=== PATIENT | male | born 1995 | race Caucasian/White ===

== ENCOUNTER 2021-10-25 09:09 | Outpatient (CLI) | payer BC, MEDICAID, SELFPAY ==
--- NOTE | ~2021-10-25 | XR_ITS ---
EXAMINATION: XR hip RT min 2V DATE: 10/25/2021 10:00 INDICATION: Right hip pain TECHNIQUE: Three views of right hip were obtained. COMPARISON: None. FINDINGS: Bone alignment is normal. There is no fracture. The soft tissues are unremarkable. IMPRESSION: 1. No acute osseous abnormality. Reviewed, dictated and finalized at location F. RINTENDENT CONTAINER TERMINAL
--- NOTE | ~2021-10-25 | XR_ITS ---
EXAMINATION: XR knee LT 3V DATE: 10/25/2021 10:00 INDICATION: Left knee pain TECHNIQUE: Four views of the left knee were obtained. COMPARISON: None. FINDINGS: Alignment is normal. No fracture or osteochondral lesion. Joint spaces are normal with no e rosions. No joint effusion/synovitis. Soft tissues are unremarkable. IMPRESSION: 1. No acute osseous abnormality. Reviewed, dictated and finalized at location F. L RECOVERY SPECIALIST
--- NOTE | ~2021-10-25 | XR_ITS ---
EXAMINATION: XR hip LT min 2V INDICATION: Left hip pain TECHNIQUE: Three views of the left hip are obtained. COMPARISON: None available FINDINGS: Bone alignment is normal. There is no fracture. The soft tissues are unremarkable. IMPRESSION: 1. No acute osseous abnormality. Reviewed, dictated and finalized at location F. IN STATION OPERATOR
--- NOTE | ~2021-10-25 | XR_ITS ---
EXAMINATION: XR knee RT 3V DATE: 10/25/2021 10:00 INDICATION: Right knee pain TECHNIQUE: Five views of the right knee were obtained. COMPARISON: 06/07/2005 FINDINGS: Alignment is normal. No fracture or osteochondral lesion. Joint spaces are normal with no e rosions. No joint effusion/synovitis. Soft tissues are unremarkable. IMPRESSION: 1. No acute osseous abnormality. Reviewed, dictated and finalized at location F. EQUIPMENT OPERATOR
== END 2021-10-25 09:10 | disposition home or self-care (01) ==
LOC: CHSIMG 09:14
PROVIDERS: PCP Family Medicine; Visit Provider Physician Assistant
DX: M25.551 Pain in right hip (principal); M25.552 Pain in left hip; M25.561 Pain in right knee; M25.562 Pain in left knee
CPT/HCPCS: 73502; 73562

== ENCOUNTER 2021-11-20 08:02 | Outpatient (RCR) | payer MEDICAID, SELFPAY ==
--- NOTE | 2021-11-20 09:02 | PTOPEVAL ---
Thank you for referring Rigoberto Gonsales to [facility] The patient is scheduled to be seen for therapy? ____x/week for ___ weeks. Please review, sign, date and return this plan of care LENKA. I agree with and certify that the following plan of care is medically necessary. Referring Physician Date Admitting Provider: Attending Provider: Abhi Gnozales, MD Referring Provider: *PT Outpatient Evaluation Start: 11/20/21 08:13 Freq: Status: Active Protocol: Document 11/20/21 08:10 [facility] (Rec: 11/20/21 08:59 [facility] [id number]) Therapy Assessment Status Assessment Status Assessment Status Evaluation Evaluation Information Problem Diagnosis R leg pain Onset 11/17/20 Additional Evaluation Detail LEFS = 47% functionally declined Subjective Information patient reports he has had R Query Text:As Reported By Patient/ leg pain from the R hip down Family to the leg to the tips of the toes. he reports the pain is a pulsating/burning all around his leg down to the ankles. he reports this had been going on for years. he reports he has increased bouts or severity of these symptoms with standing in a still position. he reports moving causes less pain, but still pain in general. he reports he has had xrays of the R hip and knee that were negative. he reports he has never had an MRI of the R LE or imaging of the back. Prior Level of Function Comments Additional Prior Level of Function patient reports he is Comments currently in school online. he reports he does not work. he reports he has been dealing with this issue for years. Pain Assessment Timing of Pain Assessment Timing of Pain Assessment Assessment Pain Scale Pain Scale Used Numeric (1 - 10) Self Report Pain Assessment Right Leg(s) Reported Pain Level 1 Greatest Pain Intensity 2 Pain Score Pain Score 1: Self Report Interventions Used Interventions Used By Clinicians Activity or ADL's,Education, Exercise,Heat,Ice,Rest Cervical and Lumbar ROM Lumbar ROM Lumbar Flexion Active [place],Ankle Query Text:Hands to: Lumbar Extension (0-40)
--- NOTE | 2022-03-09 14:52 | PCPTNOTE ---
Mr. Gonsales attended 2 treatemnt sessions from 11/20/21 to 12/02/21. He failed to return to the clinic or contact the clinic. Refer to pt. last daily note for discharge status.
== END 2021-12-02 23:59 | disposition home or self-care (01) ==
LOC: CHSPT 08:02
PROVIDERS: PCP Family Medicine; Visit Provider Family Medicine
DX: M54.50 Low back pain, unspecified (principal)
CPT/HCPCS: 97110; 97161

== ENCOUNTER 2021-11-21 16:13 | Outpatient (CLI) | payer MEDICAID, SELFPAY | END 2021-11-21 16:14 | disposition home or self-care (01) | LOC: CHSLAB 16:15 | PROVIDERS: PCP Family Medicine; Visit Provider Family Medicine | DX: R51.9 Headache, unspecified (principal) | CPT/HCPCS: 99199; C9803; U0003; U0005 ==

== ENCOUNTER 2021-11-22 08:20 | Outpatient (CLI) | payer MEDICAID, SELFPAY ==
[2021-11-22 09:21] LABS: SARS-CoV-2 RNA PCR Negative (Negative)
== END 2021-11-22 08:21 | disposition home or self-care (01) ==
PROVIDERS: PCP Family Medicine; Visit Provider Family Medicine
DX: R51.9 Headache, unspecified (principal); Z20.822 Contact with and (suspected) exposure to COVID-19
CPT/HCPCS: C9803; U0003; U0005

== ENCOUNTER 2022-02-18 12:27 | Emergency (ER) | payer BC, MEDICAID, SELFPAY ==
--- NOTE | ~2022-02-18 | CT_ITS ---
EXAMINATION: CT brain wo con DATE: 02/18/2022 13:25 INDICATION: Seizure-like activity with tremors TECHNIQUE: Computed tomography (CT) of the head was performed without intravenous contrast. Sagittal and coronal reconstructions were performed. The mA was adjusted according to patient size. Iterative reconstruction technique was employed. The dose-length product was 605.33 mGy-cm. COMPARISON: None FINDINGS: No acute intracranial hemorrhage, acute infarction or abnormal extra axial fluid collection. Ventricl es are normal and symmetric. No mass/mass effect. The orbits, paranasal sinuses and mastoid air cells are normal. IMPRESSION: 1. Normal head CT. Reviewed, dictated and finalized at location A. IMPRESSION: 1. Normal head CT.
--- NOTE | 2022-02-18 12:43 | ED.SEIZURE ---
HPI - Seizure General Chief Complaint: Seizure Stated Complaint: AMBULANCE Time Seen by Provider: 02/18/22 12:43 Source: patient History of Present Illness HPI Narrative: 27-year-old with a history benign essential tremor, chronic leg pains was noted to have -- increased shaking. The patient has chronic tremor. Today's tremors noted to be more violent and lasted around 20 seconds -- foaming at the mouth -- loss of consciousness the patient stated that he has not eaten anything and has been drinking coffee as a result of which he is more tremulous. no incontinence. No tongue bite. after the questionable seizure activity the patient was awake in the postictal phase but appeared intoxicated. this lasted approximately 1-1/2 to 2 minutes. MD complaint: possible seizure Onset (ago): minute(s) ( Lasted 20 seconds) Description of Episode: loss of consciousness and tonic-clonic movement Duration of episode: 20 -: second(s) Witnessed: Yes - by Bystander Trauma: No Place: home Possible Precipitating Event: none Associated symptoms: denies other symptoms Treatments prior to arrival: none Related Data Home Medications Medication Instructions Recorded Confirmed No Home Medications 02/18/22 02/18/22 Allergies Allergy/AdvReac Type Severity Reaction Status Date / Time No Known Allergies Allergy Mild Verified 02/18/22 12:53 Review of Systems Review of Systems: All systems reviewed & are unremarkable except as noted in HPI and below Constitutional: Constitutional: Reports as per HPI and Reports no additional constitutional complaints Eyes: Eyes: Reports as per HPI and Reports no additional eye complaints ENT: Reports system reviewed and no additional complaints, except as documented and Reports as per HPI Cardiovascular: Cardiovascular: Reports as per HPI and Reports no additional cardiovascular complaints Respiratory: Respiratory: Reports as per HPI and Reports no additional respiratory complaints Gastrointestinal: Gastrointestinal: Reports as per HPI and Reports no additional gastrointestinal complaints Genitourinary: Genitourinary: Reports no additional male genitourinary complaints Musculoskeletal: Musculoskeletal: Reports no additional musculoskeletal complaints and Reports as per HPI Integumentary/Breasts: Skin/Breast: Reports system reviewed and no additional complaints, except as docu and Reports as per HPI Neurologic: Reports system reviewed and no additional complaints, except as documented and Reports as per HPI Comments: questionable seizure activity involving clonic activity of the extremities lasting 20 seconds followed by a postictal phase lasting 1-1/2 minutes. During the postictal phase the patient was confused Psychiatric: Psychiatric: Reports no additional psychiatric complaints and Reports as per HPI Endocrine: Endocrine: Reports no additional endocrine complaints and Reports as per HPI Hematologic/Lymphatic: Hematologic/Lymphatic: Reports no additional hematologic/lymphatic complaints and Reports as per HPI Allergic/Immunologic: Allergic/Immunologic: Reports no additional allergic/immunologic complaints and Reports as per HPI Exam Const: General: no acute distress and alert Orientation/consciousness: patient oriented x3 HENMT: Head: normal to inspection Face and sinus: normal facial exam Mouth: Yes lip normal and Yes moist mucous membranes Eyes: Conjunctivae: conjunctivae normal Pupils: Equal, round and reactive pupils present EOM: EOMs intact bilaterally Direct Ophthalmoscopy: no photophobia Neck: Neck: normal visual inspection and no lymphadenopathy Chest: Chest palpation & inspection: normal inspection of the chest Resp: Auscultation: clear to auscultation bilaterally Cardio: Rate: regular rate Rhythm: regular rhythm GI: GI Palp: Yes Soft to palpation Other: no tenderness/rigidity /rebound : General: Yes no CVA tenderness Testes: Testes normal Back/Spine/Pelvis:
[2022-02-18 12:44] VITALS: BP 146/79; PULSE 109; RESP 16; TEMP 36.2; O2SAT 100
[2022-02-18] MEDS: LORazepam INJ (*CRX) 2 MG/ML VIAL 0.5 MG IV PUSH (13:05)
[2022-02-18 13:24] LABS: Basophils Absolute Auto 0.06 K/mm3 (0.00-0.10); Basophils Percent Auto 0.7 % (0.0-1.0); Eosinophils Absolute Auto 0.13 K/mm3 (0.02-0.50); Eosinophils Percent Auto 1.6 % (1.0-6.0); Hematocrit 45.6 % (40.0-54.0); Hemoglobin 15.3 g/dL (14.0-18.0); Immature Granulocyte Absolute 0.01 K/mm3 (0.00-0.00); Immature Granulocyte Percent A 0.1 % (0.0-0.0); Lymphocytes Absolute Auto 2.15 K/mm3 (1.10-4.50); Lymphocytes Percent Auto 26.8 % (18.0-42.0); Mean Corpuscular HGB Conc 33.6 g/dL (32.0-36.0); Mean Corpuscular Hemoglobin 30.1 pg (27.0-31.0); Mean Corpuscular Volume 89.8 fL (78.0-102.0); Mean Platelet Volume 10.8 fl (8.7-11.0); Monocytes Absolute Auto 0.46 K/mm3 (0.10-0.90); Monocytes Percent Auto 5.7 % (2.0-11.0); Neutrophils Absolute Auto 5.2 K/mm3 (1.7-7.2); Neutrophils Percent Auto 65.1 % (50.0-70.0); Platelet Count Result 266 K/mm3 (150-420); Red Blood Count 5.08 M/mm3 (4.70-6.10); Red Cell Distribution Width 11.6 % (11.6-14.4)
--- NOTE | 2022-02-18 13:33 | PC.NURSE ---
patient provided chips, water and sandwhich per erp request.
[2022-02-18 13:46] LABS: Alanine Aminotransferase 16 U/L (16-63); Albumin Level 4.1 g/dL (3.4-5.0); Alkaline Phosphatase 51 U/L (46-116); Anion Gap 13 mmol/L (8-16); Aspartate Amino Transferase < 10 U/L (15-37); Bilirubin,Total 0.4 mg/dL (0.00-1.00); Blood Urea Nitrogen 17 mg/dL (7-18); Calcium 8.2 mg/dL (8.5-10.1); Carbon Dioxide 23 mmol/L (21-32); Chloride 103 mmol/L (98-108); Estimated Glomerular Filt Rate > 60; Glucose 134 mg/dL (70-99); Lactic Acid Reflex 6.8 mmol/L (0.4-2.0); Magnesium 2.3 mg/dL (1.8-2.4); Osmolality Calculated 291 mOsm/kg (285-295); Potassium 3.4 mmol/L (3.5-5.1); Sodium 139 mmol/L (136-145); Thyroid Stimulating Hormone 3.37 uIU/mL (0.36-3.74); Total Protein 7.1 g/dL (6.4-8.2)
[2022-02-18 14:04] VITALS: BP 127/83; PULSE 98; RESP 16; O2SAT 97
--- NOTE | 2022-02-18 14:15 | PC.NURSE ---
1L ns finished infusing from EMS.
== END 2022-02-18 14:27 | disposition home or self-care (01) ==
PROVIDERS: Emergency Provider Internal Medicine Critical Care Medicine; PCP Physician Assistant
DX: G40.409 Other generalized epilepsy and epileptic syndromes, not intractable, without status epilepticus (principal)
CPT/HCPCS: 36415; 70450; 80053; 83605; 83735; 84443; 85025; 96374; 99284; J2060

== ENCOUNTER 2022-02-24 07:46 | Outpatient (CLI) | payer BC, MEDICAID, SELFPAY ==
--- NOTE | ~2022-02-24 | MR_ITS ---
EXAMINATION: MR lumbar spine wo con DATE: 02/24/2022 10:10 INDICATION: Low back pain and bilateral leg pain. TECHNIQUE: Magnetic resonance imaging (MRI) of the lumbar spine was performed without intravenous con trast. Sequences included sagittal T2-weighted FSE, sagittal T2-weighted FS FSE, sagittal T1-weighted FSE, and axial T2-weighted FSE. COMPARISON: Lumbar spine radiographs dated 06/09/2012 FINDINGS: Alignment is normal. Vertebral body heights are normal. Normal marrow signal. Mild disc height loss with annular fissure at L4-L5. Subtle annular fissures at L3-L4 and L5-S1. The conus medullaris termi nates at L1. There is normal signal in the caudal spinal cord. Paravertebral soft tissues are unremar kable. The following disc levels are specifically discussed: T12-L1: The disc does not extend beyond the endplate margin. There is no facet joint osteoarthritis. There is no neural foraminal stenosis. There is no central canal stenosis. L1-L2: The disc does not extend beyond the endplate margin. There is mild bilateral facet joint osteo arthritis. There is no neural foraminal stenosis. There is no central canal stenosis. L2-L3: The disc does not extend beyond the endplate margin. There is mild bilateral facet joint osteo arthritis. There is minimal bilateral neural foraminal stenosis. There is no central canal stenosis. L3-L4: The disc does not extend beyond the endplate margin. There is mild bilateral facet joint osteo arthritis. There is mild bilateral neural foraminal stenosis. There is no central canal stenosis. L4-L5: Disc is mildly bulging with small left paracentral disc extrusion with disc material extending to its inferior border caudal to the level of the superior endplate of L5 and narrowing the left lat eral recess. There is mild to moderate bilateral facet joint osteoarthritis. There is mild to moderat e bilateral neural foraminal stenosis. There is mild central canal stenosis. L3-L4: The disc does not extend beyond the endplate margin. There is mild bilateral facet joint osteo arthritis. There is mild bilateral neural foraminal stenosis. There is no central canal stenosis. IMPRESSION: 1. Mild lumbar spondylosis. Reviewed, dictated and finalized at location B. IMPRESSION: 1. Mild lumbar spondylosis.
--- NOTE | ~2022-02-24 | US_ITS ---
US abdomen complete EXAMINATION: US Abdomen Complete INDICATION: Nausea and vomiting PROCEDURE: Realtime High Resolution abdomen ultrasound. COMPARISON: No prior studies for comparison FINDINGS: Gallbladder within normal limits. No gallstones, pericholecystic fluid, gallbladder wall t hickening or biliary dilatation. Common bile duct measures 1.6 mm. Liver echotexture within normal limits without focal mass. Pancreas within normal limits. Pancreati c tail is obscured by bowel gas. Spleen is unremarkeable. Renal echotexture is within normal limits bilaterally without hydronephrosis, contour deforming mass or renal stone. Right kidney measures 10.9 cm. Left kidney measures 10.5 cm. Visualized aspects of the aorta and IVC are within normal limits. Portal vein is patent. No sonograph ic Denis's sign indicated by the technologist. IMPRESSION: 1: Normal abdominal ultrasound. Reviewed, dictated and finalized at location A.
== END 2022-02-24 07:47 | disposition home or self-care (01) ==
LOC: CHSIMG 07:48
PROVIDERS: PCP Physician Assistant; Visit Provider Physician Assistant
DX: R11.2 Nausea with vomiting, unspecified (principal); M54.50 Low back pain, unspecified
CPT/HCPCS: 72148; 76700